=== PATIENT | female | born 2000 | race Caucasian/White ===

== ENCOUNTER 2022-09-27 18:12 | Outpatient (CLI) | payer OTHER ==
--- NOTE | 2022-09-27 20:09 | XRAY Report ---
PROCEDURE: Hand 3 View LT INDICATIONS: CONTUSION OF LEFT HAND TECHNIQUE: 3 views of the hand(s) acquired. COMPARISON: None FINDINGS: Bones: No fractures or dislocations. No suspicious bony lesions. Soft tissues: No suspicious soft tissue calcifications. IMPRESSION: No evidence acute bony abnormality of the left hand. Reviewed by: Juvenal Fletcher MD on 09/27/2022 8:08 PM [facility] Approved by: Juvenal Fletcher MD on 09/27/2022 8:08 PM [facility] Station ID: [id number]
== END 2022-09-27 18:13 | disposition home or self-care (01) ==
LOC: DI 18:12
PROVIDERS: ATTEND Family Medicine
DX: S60.222A Contusion of left hand, initial encounter (principal)